=== PATIENT | male | born 1955 | race Caucasian/White ===

== ENCOUNTER 2018-06-08 09:00 | Emergency (ER) | payer BC ==
[2018-06-08 09:36] VITALS: BP 150/79
[2018-06-08 10:52] LABS: Influenza A Molecular POSITIVE (Negative)
--- NOTE | 2018-06-08 10:56 | UC ---
FLU HPI - HPI Summary HPI Summary: Pt c/o sudden onset fever chills, cough body aches that began early wednesday morning. Pt did not get flu vaccine. - History of Current Complaint Chief Complaint: UCGeneralIllness Stated Complaint: FLU LIKE SYMP Time Seen by Provider: 06/08/18 10:37 Hx Obtained From: Patient Onset/Duration: Sudden Onset, Lasting Days, Still Present Severity Currently: Moderate Severity Initially: Severe Pain Intensity: 5 Associated Signs & Symptoms: Positive: Fever, Myalgia, Cough, Nasal Congestion Related Hx: Possible Flu/Infectious Exposure - Risk Factors Influenza Risk Factors: Negative - Allergy/Home Medications Allergies/Adverse Reactions: Allergies Allergy/AdvReac Type Severity Reaction Status Date / Time No Known Allergies Allergy Verified 06/08/18 09:36 Home Medications: Home Medications Fluticasone NASAL SPRAY 50MCG* [Flonase NASAL SPRAY 50MCG*] 1 spray ALT NARE DAILY 06/08/18 [History Confirmed 06/08/18] PMH/Surg Hx/FS Hx/Imm Hx Previously Healthy: Yes - Surgical History Surgical History: Yes Surgery Procedure, Year, and Place: nasal surgery - Family History Known Family History: Positive: Cardiac Disease - Social History Occupation: Employed Full-time Alcohol Use: Daily Substance Use Type: None Smoking Status (MU): Never Smoked Tobacco Have You Smoked in the Last Year: No - Immunization History Vaccination Up to Date: No Review of Systems All Other Systems Reviewed And Are Negative: Yes Constitutional: Positive: Fever, Chills, Fatigue Skin: Positive: Negative Eyes: Positive: Negative ENT: Positive: Sinus Congestion Respiratory: Positive: Cough Cardiovascular: Positive: Negative Gastrointestinal: Positive: Negative Genitourinary: Positive: Negative Motor: Positive: Negative Neurovascular: Positive: Negative Musculoskeletal: Positive: Myalgia Neurological: Positive: Negative Psychological: Positive: Negative Is Patient Immunocompromised?: No Physical Exam Triage Information Reviewed: Yes Appearance: Ill-Appearing Vital Signs: Initial Vital Signs Temp 99.9 F 06/08/18 09:32 Pulse 95 06/08/18 09:32 Resp 16 06/08/18 09:32 BP 150/79 06/08/18 09:32 Pulse Ox 97 06/08/18 09:32 Vital Signs Reviewed: Yes Eye Exam: Normal ENT: Positive: Nasal congestion Dental Exam: Normal Neck exam: Normal Respiratory: Positive: No respiratory distress, Decreased breath sounds Cardiovascular Exam: Normal Musculoskeletal Exam: Normal Neurological Exam: Normal Psychological Exam: Normal Skin Exam: Normal Flu Course/Dx - Differential Dx/Diagnosis Differential Diagnosis/HQI/PQRI: Bronchitis, Influenza, Upper Respiratory Infection Provider Diagnosis: Influenza A Discharge - Sign-Out/Discharge Documenting (check all that apply): Patient Departure All imaging exams completed and their final reports reviewed: No Studies - Discharge Plan Condition: Stable Disposition: HOME Prescriptions: Albuterol HFA INHALER* [Ventolin HFA Inhaler*] 1 - 2 puff INH Q4H PRN #1 mdi PRN Reason: Sob/Wheezing Azithromycin TAB* [Zithromax TAB (Z-MARCELL) 250 mg #6 tabs] 2 tab PO .TODAY, THEN 1 DAILY #1 marcell Oseltamivir CAP* [Tamiflu CAP*] 75 mg PO Q12H #10 cap Patient Education Materials: Influenza (ED) Referrals: [facility] [Outside] No Primary Care Phys,NOPCP [Primary Care Provider] - - Billing Disposition and Condition Condition: STABLE Disposition: Home
== END 2018-06-08 11:11 | disposition home or self-care (01) ==
LOC: UCEAST 09:00
DX: J10.1 Influenza due to other identified influenza virus with other respiratory manifestations (principal)
CPT/HCPCS: 99202; G0463

== ENCOUNTER 2018-12-27 08:34 | Emergency (ER) | payer BC ==
--- NOTE | 2018-12-27 08:38 | UC ---
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 Feels like indigestion in some ways, but is in ant chest, and to both sides of neck. Pain comes and goes. Has had some indigestion type issues in the recent past, but usually resolves with burp. No recent illness. No recent travel, except drive [facility]. No recent f/c, cough, sob, palpitations. Father - [place] young. Brother with hx dysrhythmia. - History of Current Complaint Stated Complaint: CHEST PAIN Time Seen by Provider: 12/27/18 08:38 Hx Obtained From: Patient, Family/Home Companion - Allergy/Home Medications Allergies/Adverse Reactions: Allergies Allergy/AdvReac Type Severity Reaction Status Date / Time No Known Allergies Allergy Verified 12/27/18 08:57 PMH/Surg Hx/FS Hx/Imm Hx Previously Healthy: Yes - see hpi - Surgical History Surgical History: Yes Surgery Procedure, Year, and Place: nasal surgery - Family History Known Family History: Positive: Cardiac Disease - Social History Alcohol Use: Daily Substance Use Type: None Smoking Status (MU): Never Smoked Tobacco Have You Smoked in the Last Year: No - Immunization History Vaccination Up to Date: No Review of Systems All Other Systems Reviewed And Are Negative: Yes Constitutional: Positive: Other - see hpi Skin: Positive: Negative Eyes: Positive: Negative ENT: Positive: Negative Respiratory: Positive: Other - see hpi Cardiovascular: Positive: Other - see hpi Gastrointestinal: Positive: Other - see hpi Genitourinary: Positive: Negative Motor: Positive: Negative Neurovascular: Positive: Negative Musculoskeletal: Positive: Negative Neurological: Positive: Negative Psychological: Positive: Negative Is Patient Immunocompromised?: No Physical Exam Triage Information Reviewed: Yes Appearance: Well-Nourished, Other: - sitting up, looks uncomfortable nondiaphoretic Vital Signs Reviewed: Yes Eye Exam: Normal ENT Exam: Normal Neck exam: Normal Neck: Positive: Supple Respiratory Exam: Other - mild pex excavatum + discomfort on and off as noted in hpi Cardiovascular: Positive: RRR, No Murmur, Pulses Normal, Brisk Capillary Refill Abdominal Exam: Normal Abdomen Description: Positive: Nontender Bowel Sounds: Positive: Present Musculoskeletal Exam: Normal Neurological Exam: Normal Psychological Exam: Normal Skin Exam: Normal Course/Dx - Course Course Of Treatment: EKG NS 67 bpm. No old for comp ASA 34mg po x 1 here. Encourage ED evaluation and treatment. Pt's spouse wishes to drive, they decline EMS. I spoke with Dayron ZEPEDA at ED at time of d/c. Diff dx is extensive, includes albeit not limited to acute cardiac syndrome ( despite ok ekg). - Diagnoses Provider Diagnosis: Chest pain Discharge ED - Sign-Out/Discharge Documenting (check all that apply): Patient Departure All imaging exams completed and their final reports reviewed: No Studies - Discharge Plan Condition: Guarded Disposition: HOME-RECOMMEND TO ED Patient Education Materials: Chest Pain (ED) Referrals: No Primary Care Phys,NOPCP [Primary Care Provider] - Additional Instructions: Please go directly to the Emergency Department. Stop and call 911 for any problems en route. - Billing Disposition and Condition Condition: GUARDED Disposition: Home-Recommend to ED
[2018-12-27] MEDS ORDERED: Aspirin 81 mg CHEW TAB* 81 MG TAB.CHEW PO ONE (08:47)
[2018-12-27] MEDS ORDERED: Aspirin 81 mg CHEW TAB* 81 MG TAB.CHEW ONE (08:48)
[2018-12-27 08:57] VITALS: BP 156/90
== END 2018-12-27 08:55 | disposition home health service (06) ==
LOC: UCEAST 08:34
DX: R07.9 Chest pain, unspecified (principal)
CPT/HCPCS: 93005; 99212; A9270-GY; G0463

== ENCOUNTER 2018-12-27 09:24 | Emergency (ER) | payer BC ==
--- NOTE | 2018-12-27 10:13 | ED ---
HPI Chest Pain - HPI Summary HPI Summary: This patient is a 63 year old M presenting to [facility] with a chief complaint of CP since 0700 today. Pt states he woke up 3 hours ago feeling normal. He was drinking coffee when he felt chest tightness that radiated to his throat, shoulders, and jaw. He had similar symptoms in the past, where his symptoms were alleviated by belching and passing gas. His current symptoms are not alleviated by doing these things. The patient rated the pain 2/10 in severity, now resolved. Patient reported shaking, diaphoresis, anxiety during episode. Patient denies difficulty breathing. Pt does not have any medical problems. Pt does not smoke but did >20 years ago. FHx of MA and arrhythmia. - History of Current Complaint Chief Complaint: EDChestPainROMI Time Seen by Provider: 12/27/18 09:43 Hx Obtained From: Patient Onset/Duration: Started Hours Ago - 3, Still Present Timing: Constant, Lasting Hours - 3 Initial Severity: Moderate Current Severity: Moderate Pain Intensity: 2 Pain Scale Used: 0-10 Numeric Chest Pain Radiates: Yes Chest Pain Radiates To:: Shoulder, Jaw, Other - throat Character: Tightness Aggravating Factor(s): Nothing Alleviating Factor(s): Nothing Associated Signs and Symptoms: Positive: Chest Pain - tightness, Anxiety, Diaphoresis, Other: - positive - shaking. negative - difficulty breathing. - Allergy/Home Medications Allergies/Adverse Reactions: Allergies Allergy/AdvReac Type Severity Reaction Status Date / Time No Known Allergies Allergy Verified 12/27/18 08:57 Home Medications: Home Medications Budesonide/Formote 160/4.5(NF) [Symbicort 160/4.5 (NF)] 1 puff INH BID 12/27/18 [History Confirmed 12/27/18] Fluticasone NASAL SPRAY 50MCG* [Flonase NASAL SPRAY 50MCG*] 2 spray BOTH NARES BID 12/27/18 [History Confirmed 12/27/18] PMH/Surg Hx/FS Hx/Imm Hx Previously Healthy: No Sensory History: Denies: Hx Hearing Problem, Hx Auditory Problems EENT History: Denies: Hx Deafness, Hx Auditory Problems - Surgical History Surgical History: Yes Surgery Procedure, Year, and Place: nasal surgery Infectious Disease History: No Infectious Disease History: Denies: Traveled Outside the [place] in Last 30 Days - Family History Known Family History: Positive: Cardiac Disease - Social History Alcohol Use: Daily Substance Use Type: Reports: None Smoking Status (MU): Never Smoked Tobacco Have You Smoked in the Last Year: No Review of Systems Constitutional: Other - positive - shaking Positive: Skin Diaphoresis Positive: Chest Pain - tightness Respiratory: Other - negative - difficulty breathing Positive: Anxious All Other Systems Reviewed And Are Negative: Yes Physical Exam - Summary Physical Exam Summary: Constitutional: Well-developed, Well-nourished, Alert. (-) Distressed Skin: Warm, Dry HENT: Normocephalic; Atraumatic Eyes: Conjunctiva normal Neck: Musculoskeletal ROM normal neck. (-) JVD, (-) Stridor, (-) Nuchal rigidity Cardio: Rhythm regular, rate normal, Heart sounds normal; Intact distal pulses; Radial pulses are 2+ and symmetric. (-) Murmur Pulmonary/Chest wall: Effort normal. (-) Respiratory distress, (-) Wheezes, (-) Rales Abd: Soft, (-) tenderness, (-) Distension, (-) Guarding, (-) Rebound Musculoskeletal: (-) Edema Lymph: (-) Cervical adenopathy Neuro: Alert, Oriented x3 Psych: Mood and affect Normal Triage Information Reviewed: Yes Vital Signs On Initial Exam: Initial Vitals Temp Pulse Resp BP Pulse Ox 97.3 F 68 16 147/82 100 12/27/18 09:37 12/27/18 09:37 12/27/18 09:37 12/27/18 09:37 12/27/18 09:37 Vital Signs Reviewed: Yes Diagnostics - Vital Signs Vital Signs Temp Pulse Resp BP Pulse Ox 12/27/18 09:48 61 12 163/94 97 12/27/18 09:47 22 12/27/18 09:37 97.3 F 68 16 147/82 100 - Laboratory Result Diagrams: 12/27/18 10:06 12/27/18 10:06 Lab Statement: Any lab studies that have been ordered have been reviewed, and results considered in the medical decision making process. - Radiology CXR Radiology Interpretation Completed By: Radiologist Summary of Radiographic Findings: IMPRESSION: FINDINGS SUGGESTIVE OF COPD, NO EVIDENCE FOR ACUTE DISEASE. These findings were reviewed by Dr. Lester. - EKG 0921 Cardiac Rate: NL - 66 BPM EKG Rhythm: Sinus Rhythm Summary of EKG Findings: sinus rhythm, 66 BPM, nml axis, nml intervals. No STEMI. No acute changes. 1159 Cardiac Rate: NL - 64 BPM EKG Rhythm: Sinus Rhythm Summary of EKG Findings: Sinus rhythm, 64 BPM, nml axis, nml intervals. No STEMI. No acute changes. Re-Evaluation - Re-Evaluation First Eval Re-Evaluation Time: 12:55 Change: Improved - Troponin negative 2. Chest x-ray with hyperinflation of lungs consistent with possible COPD, discussed with patient he can follow up with primary care doctor. Chest Pain Course/Dx - Course Course Of Treatment: 63-year-old male with no past medical history presents with chest tightness. Chest Pain DDX: The patient is well appearing, with stable vitals. Given the patient's clinical presentation, highest on differential is atypical chest pain. Although less likely, differential also includes the following: --Pneumothorax: Equal breath sounds, story inconsistent since gradual onset of symptoms. CXR shows no evidence of pneumothorax. Unlikely. --Cardiac tamponade: The history and physical are not concerning for tamponade. No Pulsus Paradoxus, no tachypnea. Unlikely. -- Mediastinitis or esophageal rupture: The history is not consistent, as the patient has had no recent history of significant wretching, instrumentation, or mediastinal surgeries. Unlikely. --Aortic dissection: The patient does not describe the classical tearing chest pain radiating into the back, and the CXR does not show mediastinal widening or other signs of aortic dissection. Unlikely. --PE: Vitals wnl (not hypoxic, tachycardic or tachypneic). --ACS: The initial EKG shows no ischemic changes. The initial troponin is not elevated. Heart score - HEART Score. Based on a HEART score of 1 the patient has a low risk (<2% chance) of major adverse cardiac event within the next 6 weeks. I explained to the patient that based on the work-up today, her risk of heart attack is low and that he/she will be discharged with outpatient follow- up. Strict return precautions were discussed regarding worsening chest pain, new / atypical pain, shortness of breath, or any other serious concerns. Patient endorsed understanding and has no questions at this time. Source --. [place] BE, Ran AJ, Vinicio MERRITT, Hal MA, Chucho EG, Deya A, Gabriel RF,. Wardhipolito AJ, Mohsen R, Michelle R, Kyra SH, van Jose R, Chucho TP, van jaelyn Lyn F,. Abi MJ, Ines JM, Kevon AW, Sheyla PA. A prospective validation of. the HEART score for chest pain patients at the emergency department. Int J. Cardiol. 2013 Jan 3;168(3):2153-8. 0-3: 2.5% risk of adverse cardiac event. In the HEART Score, these patients were discharged. (0.99% retrospective ) (1.7% prospective). 4-6: 20.3% risk of adverse cardiac event, suggesting admission to the hospital. 11.6% (16.6% prospective). =7: 72.7% risk of adverse cardiac event, suggesting early invasive measures with these patients. 65.2% (50.1% prospective) - Diagnoses Provider Diagnoses: Chest tightness Discharge ED - Sign-Out/Discharge Documenting (check all that apply): Patient Departure - discharge Patient Received Moderate/Deep Sedation with Procedure: No - Discharge Plan Condition: Stable Disposition: HOME Patient Education Materials: Chest Pain (ED) Referrals: [facility] [Outside] - 1 Day Additional Instructions: You were seen in the emergency department for chest pain. Your Xray showed hyper inflated lungs which can be seen in lung disease such as COPD. Your EKG ( heart tracing), labs and chest x-ray did not show any cause for pain. Important that you follow up with your primary care doctor in the next 1-2 days to help schedule an outpatient stress test. Please return to the emergency department for continued chest pain, trouble breathing, passing out, or if you' re concerned. - Billing Disposition and Condition Condition: STABLE Disposition: Home - Attestation Statements Document Initiated by Scribe: Yes Documenting Scribe: Zafar Payan Provider For Whom Jaren is Documenting (Include Credential): Dr. Sarah Lester MD Scribe Attestation: Zafar Menchaca, scribed for Dr. Sarah Lester MD on 12/27/18 at 1301. Scribe Documentation Reviewed: Yes Provider Attestation: The documentation as recorded by the scribe, Zafar Payan accurately reflects the service I personally performed and the decisions made by me, Dr. Sarah Lester MD Status of Scribsree Document: Viewed
[2018-12-27 10:14] LABS: ABS Eosinophils 0.2 10^3/ul (0-0.6); ABS Lymphocytes 1.2 10^3/ul (1.0-4.8); ABS Monocytes 0.6 10^3/ul (0-0.8); ABS Neutrophils 5.6 10^3/ul (1.5-7.7); Eosinophil % 2.9 %; Hematocrit 43 % (42-52); Lymphocyte % 15.6 %; Mean Corpuscular HGB Conc 35 g/dL (31-36); Mean Corpuscular Hemoglobin 34 pg (27-31); Mean Corpuscular Volume 97 fL (80-94); Mean Platelet Volume 8.4 fL (7.4-10.4); Platelet Count 259 10^3/uL (150-450); Red Blood Count 4.41 10^6 /uL (4.18-5.48); Red Cell Distribution Width 14 % (10-15); White Blood Count 7.7 10^3/uL (3.5-10.8)
[2018-12-27 10:27] LABS: INR 0.96 (0.82-1.09)
[2018-12-27 10:31] LABS: Albumin 4.2 g/dL (3.2-5.2); Albumin/Globulin Ratio 1.4 (1-3); BUN/Creatinine Ratio 14.4 (8-20); Calcium 9.3 mg/dL (8.6-10.3); EGFR Non-African American 71.9 (>60); Globulin 2.9 g/dL (2-4); Potassium 4.2 mmol/L (3.5-5.0); Total Bilirubin 0.6 mg/dL (0.2-1.0); Total Protein 7.1 g/dL (6.4-8.9)
[2018-12-27 13:11] VITALS: BP 148/82
== END 2018-12-27 13:11 | disposition home or self-care (01) ==
LOC: ED 09:24
DX: R07.89 Other chest pain (principal); Z87.891 Personal history of nicotine dependence; Z79.899 Other long term (current) drug therapy
CPT/HCPCS: 36415; 71046; 80053; 84484; 85025; 85610; 93005; 99283

== ENCOUNTER 2019-03-17 14:10 | Emergency (ER) | payer BC | END 2019-03-17 14:20 | disposition left against medical advice (07) | LOC: UCEAST 14:10 | DX: Z53.21 Procedure and treatment not carried out due to patient leaving prior to being seen by health care provider (principal) ==

== ENCOUNTER 2019-03-18 09:35 | Emergency (ER) | payer BC ==
[2019-03-18 10:42] VITALS: BP 139/81
--- NOTE | 2019-03-18 10:58 | UC ---
General HPI - HPI Summary HPI Summary: Patient is a 63-year-old male presenting with concern for possible Lyme disease after he noticed a warm area of redness on his left calf that began 2 days ago. Patient states he had a tick bite to left upper thoracic back region 3 weeks ago. Patient states he contacted his physician who told him to watch and wait. Patient now concerned about bullseye rash. He notes the area of redness began first as what he believes may be a bug bite but never saw a tick there. States redness has gradually increased over the past 2 days. Notes warmth. Denies drainage and pain. Denies fever and chills. Denies nausea and vomiting. Denies headache. Denies joint pain or muscle weakness. - History of Current Complaint Chief Complaint: UCGeneralIllness Stated Complaint: RASH Hx Obtained From: Patient Pain Intensity: 0 - Allergy/Home Medications Allergies/Adverse Reactions: Allergies Allergy/AdvReac Type Severity Reaction Status Date / Time No Known Allergies Allergy Verified 12/27/18 08:57 PMH/Surg Hx/FS Hx/Imm Hx Previously Healthy: Yes - Surgical History Surgical History: Yes Surgery Procedure, Year, and Place: nasal polypectomy. 2 detached retinas. 2 cataract lens replacements - Family History Known Family History: Positive: Cardiac Disease - Social History Lives: With Family Alcohol Use: Daily Alcohol Amount: 2 drinks/ day Substance Use Type: None Smoking Status (MU): Former Smoker Have You Smoked in the Last Year: No - Immunization History Vaccination Up to Date: No Review of Systems All Other Systems Reviewed And Are Negative: Yes Constitutional: Positive: Negative. Negative: Fever, Chills Skin: Positive: Other - area of redness and warmth on L calf Respiratory: Positive: Negative Cardiovascular: Positive: Negative Gastrointestinal: Negative: Vomiting, Nausea Neurovascular: Positive: Negative Musculoskeletal: Positive: Negative. Negative: Arthralgia, Myalgia Neurological: Positive: Negative. Negative: Headache Physical Exam Triage Information Reviewed: Yes Appearance: Well-Appearing, No Pain Distress, Well-Nourished Vital Signs: Initial Vital Signs Temp 97.8 F 03/18/19 10:36 Pulse 72 03/18/19 10:36 Resp 16 03/18/19 10:36 BP 139/81 03/18/19 10:36 Pulse Ox 99 03/18/19 10:36 Vital Signs Reviewed: Yes Eyes: Positive: Conjunctiva Clear ENT: Positive: Hearing grossly normal Neck: Positive: Supple Respiratory Exam: Normal Respiratory: Positive: Lungs clear, Normal breath sounds, No respiratory distress Cardiovascular Exam: Normal Cardiovascular: Positive: RRR Musculoskeletal: Positive: ROM Intact, No Edema Neurological Exam: Other - sensation grossly intact Neurological: Positive: Alert Psychological: Positive: Age Appropriate Behavior Skin: Positive: Other - 4cm circular area of warmth and erythema noted on L calf. no tenderness to touch. no drainage or fluctuance. Course/Dx - Course Course Of Treatment: Educated on tick bites and Lyme disease. Educated on cellulitis and treatment with antibiotics. I offered Lyme testing to the patient and he stated he wished to go home and think about it so I provided him with outpatient form for blood work. I treated with Keflex for cellulitis and the area of redness was outlined for him. I instructed to follow up with PCP if symptoms persist or go to ED with worsening symptoms. Patient voiced understanding and agreed with treatment plan. - Diagnoses Provider Diagnosis: Cellulitis of left lower extremity Discharge ED - Sign-Out/Discharge Documenting (check all that apply): Patient Departure All imaging exams completed and their final reports reviewed: No Studies - Discharge Plan Condition: Stable Disposition: HOME Prescriptions: Cephalexin CAP* [Keflex CAP*] 500 mg PO TID #21 cap Patient Education Materials: Cellulitis (ED) Referrals: Pricila June MD [Primary Care Provider] - If Needed Additional Instructions: As discussed, take Keflex as prescribed for the treatment of your skin infection. Keep the area clean and dry. The area was outlined for you today. Return or go to the Emergency Room if the redness significantly increases within the next day or two. Go to the emergency room if you experience fever, increasing redness and warmth to the area, drainage, or nausea and vomiting. You also received testing for Lyme Disease today. You will be notified only with a positive result. - Billing Disposition and Condition Condition: STABLE Disposition: Home
== END 2019-03-18 11:40 | disposition home or self-care (01) ==
LOC: UCEAST 09:35
DX: L03.116 Cellulitis of left lower limb (principal); Z87.891 Personal history of nicotine dependence
CPT/HCPCS: 99212; G0463

== ENCOUNTER 2019-04-07 18:07 | Emergency (ER) | payer BC ==
[2019-04-07 19:27] VITALS: BP 144/83
--- NOTE | 2019-04-07 19:31 | UC ---
Skin Complaint HPI - HPI Summary HPI Summary: 63 yo male presents with rash to left calf. He tells me that about 1 month ago he was bitten by a tick to his left flank - removed within 24 hours he thinks. About a week later he noticed a solid red and warm rash to his left calf and was seen here. Thought to be cellulitis at the time and was placed on keflex. Pt states rash seemed to dissipate slightly, but over the last 5-7 days has formed a noticeable red ring with central clearing resembling a "bull's eye". He denies fever, chills, body aches, joint pain/swelling, injury. - History of Current Complaint Chief Complaint: UCSkin Time Seen by Provider: 04/07/19 19:31 Stated Complaint: RASH Hx Obtained From: Patient Onset/Duration: Gradual Onset Current Severity: None Pain Intensity: 0 - Allergy/Home Medications Allergies/Adverse Reactions: Allergies Allergy/AdvReac Type Severity Reaction Status Date / Time No Known Allergies Allergy Verified 04/07/19 19:27 PMH/Surg Hx/FS Hx/Imm Hx Respiratory History: Asthma - Surgical History Surgical History: Yes Surgery Procedure, Year, and Place: nasal polypectomy. 2 detached retinas. 2 cataract lens replacements - Family History Known Family History: Positive: Cardiac Disease - Social History Lives: With Family Alcohol Use: Daily Alcohol Amount: 2-3 drinks/ day Substance Use Type: None Smoking Status (MU): Former Smoker Have You Smoked in the Last Year: No - Immunization History Vaccination Up to Date: No Review of Systems All Other Systems Reviewed And Are Negative: No Constitutional: Positive: Negative Skin: Positive: Rash Eyes: Positive: Negative ENT: Positive: Negative Respiratory: Positive: Negative Cardiovascular: Positive: Negative Gastrointestinal: Positive: Negative Neurovascular: Positive: Negative Neurological: Positive: Negative Psychological: Positive: Negative Physical Exam - Summary Physical Exam Summary: GENERAL: NAD. WDWN. No pain distress. SKIN: LEFT CALF: Large ~18.0cm diameter area of bull's eye rash with central clearing. NTTP. No induration, warmth, or edema. NECK: Supple. Nontender. No lymphadenopathy. CHEST: No accessory muscle use. Breathing comfortably and in no distress. CV: Pulses intact. Cap refill <2seconds NEURO: Alert. PSYCH: Age appropriate behavior. Triage Information Reviewed: Yes Vital Signs: Initial Vital Signs Temp 98.3 F 04/07/19 19:21 Pulse 70 04/07/19 19:21 Resp 16 04/07/19 19:21 BP 144/83 04/07/19 19:21 Pulse Ox 98 04/07/19 19:21 Vital Signs Reviewed: Yes Course/Dx - Course Course Of Treatment: Classic appearing bull's eye rash to left calf with recent tick bite. Will dx as lyme disease and treat with doxycycline. - Diagnoses Provider Diagnosis: Lyme disease Discharge ED - Sign-Out/Discharge Documenting (check all that apply): Patient Departure All imaging exams completed and their final reports reviewed: No Studies - Discharge Plan Condition: Stable Disposition: HOME Prescriptions: DOXYcycline CAP(*) [DOXYcycline 100MG CAP(*)] 100 mg PO BID #42 cap Patient Education Materials: Lyme Disease (ED) Referrals: Pricila June MD [Primary Care Provider] - Additional Instructions: If you develop a fever, shortness of breath, chest pain, new or worsening symptoms - please call your PCP or go to the ED immediately. Your blood pressure was high at todays visit. Please see your primary provider within 4 weeks for recheck and re-evaluation. - Billing Disposition and Condition Condition: STABLE Disposition: Home - Attestation Statements Provider Attestation: Per institutional requirements, I have reviewed the chart, however, I was not consulted specifically or made aware of this patient by the midlevel provider. I did not personally evaluate, interact with , or disposition this patient.
== END 2019-04-07 19:42 | disposition home or self-care (01) ==
LOC: UCEAST 18:07
DX: A69.20 Lyme disease, unspecified (principal); J45.909 Unspecified asthma, uncomplicated; Z87.891 Personal history of nicotine dependence
CPT/HCPCS: 99212; G0463